=== PATIENT | male | born 1990 | race Asian ===

== ENCOUNTER 2024-01-07 10:48 | Outpatient (CLI) | payer OTHER ==
[2024-01-09 19:07] LABS: QUANTIFERON TB GOLD Negative (Negative)
== END 2024-01-07 18:55 | disposition home or self-care (01) ==
LOC: SLB 10:48
PROVIDERS: ATTEND Internal Medicine
DX: R73.9 Hyperglycemia, unspecified (principal); E55.9 Vitamin D deficiency, unspecified; Z20.1 Contact with and (suspected) exposure to tuberculosis
CPT/HCPCS: 36415; 83037; 86480